=== PATIENT | female | born 1975 | race African-American/Black ===

== ENCOUNTER 2016-08-26 23:30 | Emergency (ER) | payer OTHER ==
[~2016-08-26] VITALS: Ht 170.2 cm; Wt 104.0 kg
[~2016-08-26 23:30] MED LIST: ALBU8I INH; AMLO10 PO; CYCL-36 PO; HYDR50TA5 PO; NAPR500 PO
[2016-08-26 23:32] VITALS: BP 143/85; PULSE 84; RESP 16; TEMP 98.3; O2SAT 99
[2016-08-26] MEDS ORDERED: AMOX500T PO (23:48)
[2016-08-26] MEDS ORDERED: PRED-503 PO (23:48)
[2016-08-27] MEDS ORDERED: AMOXICILLIN (TRIHYDRATE) 500 MG CAP PO ONE
--- NOTE | 2016-08-27 00:01 | PD ---
HPI Chief Complaint: ENT Complaint Time Seen by Provider: 23:58 Travel History International Travel<30 days: No Contact w/Intl Traveler<30days: No Traveled to known affect area: No History of Present Illness HPI 41-year-old black female resents emergency department with complaints of sore throat for the past 4 days. She states that in addition to the sore throat she has had runny nose, congestion and slight cough. She had an episode of vomiting earlier today with congestion. She denies any fever or chills. No ear pain, shortness of breath, wheezing, abdominal pain, dysuria or frequency. No diarrhea. 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 PFS Past Medical History Asthma: Yes Cancer: No Cardiovascular Problems: Yes (HTN) Diabetes: No Diminished Hearing: No Glaucoma: No Hepatitis: No Hypertension: Yes Reproductive: Yes (VULVAR DYSPLASIA) Respiratory: Yes (ASTHMA) Thyroid Disease: No Tetanus Vaccination: < 5 Years ?: Not LMP: 08/08/16 : 1 Para: 1 Dilation and Curettage (D&C): Yes Past Surgical History Abdominal Surgery: Yes (LAP JAMIN) Cholecystectomy: Yes Gynecologic Surgery: Yes (D&C) Pacemaker: No Other Surgery: Yes Social History Alcohol Use: No (VERY RARELY) Tobacco Use: No Substance Use: No Allergies-Medications (Allergen,Severity, Reaction): Coded Allergies: No Known Allergies (Verified , 08/26/16) Reported Meds & Prescriptions Reported Meds & Active Scripts Active Deltasone (Prednisone) 20 Mg Tab 20 Mg PO BID Amoxicillin 500 Mg Tab 1,000 Mg PO BID Naprosyn (Naproxen) 500 Mg Tab 500 Mg PO Q12HR PRN Flexeril (Cyclobenzaprine HCl) 10 Mg Tab 10 Mg PO Q8HR PRN Reported Ventolin Hfa (Albuterol Sulfate) 8 Gm Aero 1 Puff INH Q4 * SHAKE WELL BEFORE USE * Hydrochlorothiazide 50 Mg Tab 50 Mg PO DAILY Norvasc (Amlodipine Besylate) 10 Mg Tab 10 Mg PO HS Review of Systems Except as stated in HPI: all other systems reviewed are Neg Physical Exam Narrative GENERAL: Well-developed, well-nourished in no acute distress. Nontoxic appearing. HEAD: Normocephalic, atraumatic. EYES: Pupils equal round and reactive. Extraocular motions intact. No scleral icterus. No injection or drainage. ENT: TMs clear without erythema. The external auditory canals clear. Nose: clear . Posterior pharynx is pink and moist. No tonsillar edema or exudate. Uvula midline. Airway patent. NECK: Trachea midline.Supple, nontender, moves head freely. No central bony tenderness or spasm. CARDIOVASCULAR: Regular rate and rhythm without murmurs, gallops, or rubs. RESPIRATORY: Clear to auscultation. Breath sounds equal bilaterally. No wheezes , rales, or rhonchi. GASTROINTESTINAL: Abdomen soft, non-tender, nondistended. No hepato-splenomegaly , or palpable masses. No guarding. EXTREMITIES: No clubbing, cyanosis, or edema. No joint tenderness, effusion, or edema noted. BACK: Nontender without deformity or crepitance. No flank tenderness. Data Data Last Documented VS Vital Signs Date Time Temp Pulse Resp B/P Pulse Ox O2 Delivery O2 Flow Rate FiO2 08/26/16 23:32 98.3 84 16 143/85 99 Orders Amoxicillin (Trimox) (08/27/16 00:00) [facility] Medical Decision Making Medical Screen Exam Complete: Yes Emergency Medical Condition: Yes Medical Record Reviewed: Yes Differential Diagnosis MDM: High Differential diagnoses: Strep throat, viral pharyngitis, mono, peritonsillar abscess, retropharyngeal abscess, Raphael's angina Narrative Course This is acute pharyngitis. Patient's given amoxicillin 500 mg by mouth. Diagnosis Primary Impression: Acute pharyngitis Qualified Code: J02.9 - Acute pharyngitis, unspecified etiology Patient Instructions: General Instructions Additional Instructions: Rest. Force fluids. Saltwater gargles. Tylenol and Advil. Chloraseptic [place] Cepastat lozenge. Prednisone, Amoxicillin. Follow-up with a primary care doctor in one week. Return to the ER if any problems. Med/Other Pt SpecificInfo: Prescription(s) given Scripts Prednisone (Deltasone)20 Mg Tab20 Mg PO BID #6 TAB Prov:Annalise Souza MD 08/26/16 Amoxicillin 500 Mg Tab1,000 Mg PO BID #40 TAB Prov:Annalise Souza MD 08/26/16 Disposition: 01 DISCHARGE HOME Condition: Stable Álvaro Talamantes Aug 27, 2016 00:01
[2016-09-25] MEDS ORDERED: AMLO5TAB2 PO ×2 (11:43→12:09)
[2016-09-25] MEDS ORDERED: HYDR12.57 PO ×2 (11:43→12:09)
[2016-09-25] MEDS ORDERED: ALBUAER3 INH ×2 (11:43→12:09)
[2016-09-25] MEDS ORDERED: NORG1TAB29 PO ×2 (11:51→12:09)
[2016-10-17] MEDS ORDERED: FLUC150T PO (12:53)
[2016-10-23] MEDS ORDERED: TUBE5INJ2 I-DERMAL (12:44)
[2016-12-27] MEDS ORDERED: HYDR12.57 PO (11:59)
== END 2016-08-27 00:20 | disposition home or self-care (01) ==
LOC: NEPB 23:30
DX: J02.9 Acute pharyngitis, unspecified (principal); I10 Essential (primary) hypertension; J45.909 Unspecified asthma, uncomplicated
CPT/HCPCS: 99283

== ENCOUNTER 2017-06-15 06:45 | Emergency (ER) | payer OTHER ==
[~2017-06-15] VITALS: Ht 170.2 cm; Wt 105.0 kg
[~2017-06-15 06:45] MED LIST changes: -ALBU8I INH; +ALBUAER3 INH; -AMLO10 PO; +AMLO5TAB2 PO; -CYCL-36 PO; +HYDR12.57 PO; -HYDR50TA5 PO; -NAPR500 PO; +NORG1TAB29 PO
[2017-06-15 06:46] VITALS: BP 137/86; PULSE 73; RESP 15; TEMP 98.5; O2SAT 100
--- NOTE | 2017-06-15 07:12 | PD ---
HPI Chief Complaint: ENT Complaint Time Seen by Provider: 06:57 Travel History International Travel<30 days: No Contact w/Intl Traveler<30days: No Traveled to known affect area: No History of Present Illness HPI 41y female presents to the emergency department c/o left ear discomfort for 1 week. She thinks a bug flew into her ear about a month ago but never actually saw the bug and has not been able to take anything out of her ear. States that her left ear became more uncomfortable and aching and decided to come in here today. Admits to trying to dig into her ear with her fingernail however she's been unsuccessful. States that 3 days ago she developed bilateral watery eyes and clear runny nose after being exposed to a room at work. She denies any history of environmental allergies. She is not tried anything over-the- counter. Patient denies fever, chills, ear discharge, nausea, vomiting, diarrhea, chest pain, shortness of breath, cough. Patient history significant for high blood pressure which is controlled. PFSH Past Medical History Asthma: Yes Cancer: No Cardiovascular Problems: Yes (HTN) Diabetes: No Diminished Hearing: No Glaucoma: No Hepatitis: No Hypertension: Yes Reproductive: Yes (VULVAR DYSPLASIA) Respiratory: Yes (ASTHMA) Thyroid Disease: No ?: Not LMP: 06/15/17 : 1 Para: 1 Dilation and Curettage (D&C): Yes Past Surgical History Abdominal Surgery: Yes (LAP JAMIN) Cholecystectomy: Yes Gynecologic Surgery: Yes (D&C) Pacemaker: No Other Surgery: Yes Social History Alcohol Use: No (VERY RARELY) Tobacco Use: No Substance Use: No Allergies-Medications (Allergen,Severity, Reaction): Coded Allergies: No Known Allergies (Verified Adverse Reaction, Unknown, 06/15/17) Reported Meds & Prescriptions Reported Meds & Active Scripts Active Ciprodex Otic Drops (Ciprofloxacin-Dexamethasone Otic Drops) 0.3-0.1% Susp 4 Drop LEFT EAR BID 7 Days Proair Hfa 8.5 GM Inh (Albuterol Sulfate) 90 Mcg/Act Aer 2 Puff INH Q4-6H PRN 108 mcg/actuation Amlodipine (Amlodipine Besylate) 5 Mg Tab 5 Mg PO DAILY Low-Ogestrel (Norgestrel-Ethinyl Estradiol) 0.3-30 Mg-Mcg Tab 1 Tab PO DAILY Hydrochlorothiazide 12.5 Mg Cap 12.5 Mg PO DAILY Review of Systems Except as stated in HPI: all other systems reviewed are Neg Physical Exam Narrative GENERAL: Well-developed well-nourished in no apparent distress SKIN: Focused skin assessment warm/dry. HEAD: Atraumatic. Normocephalic. EYES: Pupils equal and round. No scleral icterus. Mild scleral injection without obvious discharge. ENT: No nasal bleeding. Clear rhinorrhea. Mucous membranes pink and moist. Bilateral ear canals appear erythematous without maceration or exudate. Postnasal drip EARS: Bilateral pinnae and external canals appear within normal limits. Bilateral tympanic membranes without erythema or perforation, air fluid level present behind TM membranes NECK: Trachea midline. No JVD. No lymphadenopathy CARDIOVASCULAR: Regular rate and rhythm. No murmur appreciated. RESPIRATORY: No accessory muscle use. Clear to auscultation. Breath sounds equal bilaterally. MUSCULOSKELETAL: No obvious deformities. No clubbing. No cyanosis. No edema. NEUROLOGICAL: Awake and alert. No obvious cranial nerve deficits. Motor grossly within normal limits. Normal speech. PSYCHIATRIC: Appropriate mood and affect; insight and judgment normal. Data Data Last Documented VS Vital Signs Date Time Temp Pulse Resp B/P (MAP) Pulse Ox O2 Delivery O2 Flow Rate FiO2 06/15/17 06:46 98.5 73 15 137/86 (103) 100 Room Air Orders Orders Ed Discharge Order (06/15/17 07:14) MDM Medical Decision Making Medical Screen Exam Complete: Yes Emergency Medical Condition: Yes Differential Diagnosis Environmental allergies versus otitis media versus otitis externa versus allergic rhinitis Narrative Course 41y female presents to the emergency department c/o left ear discomfort for 1 week. She thinks a bug flew into her ear about a month ago but never actually saw the bug and has not been able to take anything out of her ear. States that her left ear became more uncomfortable and aching and decided to come in here today. Admits to trying to dig into her ear with her fingernail however she's been unsuccessful. States that 3 days ago she developed bilateral watery eyes with mild stinging and clear runny nose after being exposed to a room at work. She denies any history of allergies. She is not tried anything over-the- counter. Patient denies fever, chills, ear discharge, nausea, vomiting, diarrhea, chest pain, shortness of breath, cough. Patient history significant for high blood pressure which is controlled. Physical exam demonstrates bilateral ear canals mildly erythematous without exudate. Left canal is slightly more erythematous with some obvious trauma consistent with patient's history. Left ear TM demonstrates air fluid level without bulging or perforation. Bilateral sclera with mild injection without exudate. Postnasal drip. Physical exam otherwise within normal limits. Vital signs stable Concern for developing left otitis externa secondary to digital trauma, Rx Ciprodex otic. Advised patient to take OTC antihistamines for allergic rhinitis and allergy symptoms, Tylenol or Motrin per package instructions Follow-up with primary care physician within 2 days and return if worsening or persistent symptoms. Diagnosis Primary Impression: Allergic rhinitis Qualified Codes: J30.9 - Allergic rhinitis, unspecified Additional Impression: Otitis externa Qualified Codes: H60.502 - Unspecified acute noninfective otitis externa, left ear Referrals: Primary Care Physician Patient Instructions: Allergic Rhinitis (ED), Ear Infection (ED), General Instructions Additional Instructions: Use [id number] U[place]ila, Zyrtec, Claritin, or Benadryl per package instructions daily for approximately 1 week. May use OTC Tyleno or motrin per package instructions for pain relief. Follow-up with her primary care physician within 2 days Medications as prescribed If your symptoms persist or worsen return to the emergency department Scripts Ciprofloxacin-Dexamethasone Otic Drops (Ciprodex Otic Drops) 0.3-0.1% Susp 4 DROP LEFT EAR BID for Infection for 7 Days, #1 BOTTLE 0 Refills Prov: Annie Sheridan MD 06/15/17 Disposition: 01 DISCHARGE HOME Condition: Stable Rozina Sultana Jun 15, 2017 07:12
[2017-06-15] MEDS ORDERED: CIPR0.3S LEFT EAR (07:13)
[2017-06-17] MEDS ORDERED: LISI-519 PO (09:32)
[2017-06-17] MEDS ORDERED: HYDR12.57 PO ×2 (09:32→10:08)
[2017-06-17] MEDS ORDERED: [UNRECOGNIZED DRUG - CODE] TOPICAL (10:05)
[2017-06-25] MEDS ORDERED: METR1TAB76 PO (16:14)
== END 2017-06-15 09:12 | disposition home or self-care (01) ==
LOC: NEPD 06:45
DX: J30.9 Allergic rhinitis, unspecified (principal); H60.92 Unspecified otitis externa, left ear; J45.909 Unspecified asthma, uncomplicated; I10 Essential (primary) hypertension; Z79.899 Other long term (current) drug therapy
CPT/HCPCS: 99283

== ENCOUNTER 2017-06-30 14:57 | Emergency (ER) | payer OTHER ==
[~2017-06-30] VITALS: Ht 170.2 cm; Wt 104.5 kg
[~2017-06-30 14:57] MED LIST changes: -AMLO5TAB2 PO; +CIPR0.3S LEFT EAR; +LISI-519 PO; +METR1TAB76 PO; +[UNRECOGNIZED DRUG - CODE] TOPICAL
[2017-06-30 15:00] VITALS: BP 146/83; PULSE 70; RESP 17; TEMP 98.8; O2SAT 95
[2017-06-30] MEDS ORDERED: CLAR5TAB9 PO (16:15)
[2017-06-30] MEDS ORDERED: TRAM50TA PO (16:15)
[2017-06-30] MEDS ORDERED: AUGM875T3 PO (16:15)
--- NOTE | 2017-06-30 16:15 | PD ---
HPI Chief Complaint: ENT Complaint Time Seen by Provider: 16:02 Travel History International Travel<30 days: No Contact w/Intl Traveler<30days: No Traveled to known affect area: No History of Present Illness HPI This is a 41-year-old female who presents to the emergency department with a week and a half of left ear pain, constant, severe, feeling like something is inside her ear with no associated rhinorrhea or sinus congestion and no fevers. She was seen a week and a half ago and prescribed Ciprodex but told she likely had allergic sinusitis. She's been using the Ciprodex. She followed up with her primary care physician and despite that she's not improving. She's been waking up in the middle the night because of her pain. PFSH Past Medical History Asthma: Yes Cancer: No Cardiovascular Problems: Yes Diabetes: No Diminished Hearing: No Glaucoma: No Hepatitis: No Hypertension: Yes Reproductive: Yes (VULVAR DYSPLASIA) Respiratory: Yes Thyroid Disease: No Tetanus Vaccination: < 5 Years ?: Not : 1 Para: 1 Dilation and Curettage (D&C): Yes Past Surgical History Abdominal Surgery: Yes (LAP JAMIN) Cholecystectomy: Yes Gynecologic Surgery: Yes (D&C) Pacemaker: No Other Surgery: Yes Social History Alcohol Use: No (VERY RARELY) Tobacco Use: No Substance Use: No Allergies-Medications (Allergen,Severity, Reaction): Coded Allergies: No Known Allergies (Verified Adverse Reaction, Unknown, 06/30/17) Reported Meds & Prescriptions Reported Meds & Active Scripts Active Metronidazole 500 Mg Tab 500 Mg PO BID Hydrochlorothiazide 12.5 Mg Cap 12.5 Mg PO BID Podofilox Topical (Podofilox) 0.5% Soln 1 Applic TOPICAL BID 3 Days Apply BID for 3 days. Stop for 4 days. Repeat if needed for max 4 cycles. DO NOT use inside vagina. Lisinopril 5 Mg Tab 5 Mg PO DAILY Ciprodex Otic Drops (Ciprofloxacin-Dexamethasone Otic Drops) 0.3-0.1% Susp 4 Drop LEFT EAR BID 7 Days Proair Hfa 8.5 GM Inh (Albuterol Sulfate) 90 Mcg/Act Aer 2 Puff INH Q4-6H PRN 108 mcg/actuation Low-Ogestrel (Norgestrel-Ethinyl Estradiol) 0.3-30 Mg-Mcg Tab 1 Tab PO DAILY Review of Systems General / Constitutional: No: Fever, Chills Respiratory: No: Cough Physical Exam Narrative GENERAL: Well-appearing, no acute distress, nontoxic SKIN: Warm and dry. HEAD: Atraumatic. Normocephalic. ENT: Fluid behind the left tympanic membrane, no erythema, no edema of the ear canal, no foreign body in the ear canal. MUSCULOSKELETAL: No obvious deformities. No clubbing. No cyanosis. No edema. NEUROLOGICAL: Awake and alert. No obvious cranial nerve deficits. Motor grossly within normal limits. Normal speech. PSYCHIATRIC: Appropriate mood and affect; insight and judgment normal. Data Data Last Documented VS Vital Signs Date Time Temp Pulse Resp B/P (MAP) Pulse Ox O2 Delivery O2 Flow Rate FiO2 06/30/17 15:00 98.8 70 17 146/83 (104) 95 Room Air MDM Medical Decision Making Medical Screen Exam Complete: Yes Emergency Medical Condition: Yes Differential Diagnosis Sinus congestion, otitis media, foreign body, otitis externa Narrative Course This is a 41-year-old female who presents to the emergency department with pain in her left ear that is been going on for 1 week. On exam she has fluid behind the eardrum but no erythema or dullness to suggest otitis media. I suspect she has sinus congestion or sinusitis causing her symptoms. Patient will be discharged on Augmentin, Sudafed, tramadol for pain and will be referred to ENT. Diagnosis Primary Impression: Fluid level behind tympanic membrane of left ear Patient Instructions: General Instructions Additional Instructions: If you develop fever, chills, severe pain or severe headache return to the emergency room. Follow-up with an ENT as soon as possible. Med/Other Pt SpecificInfo: Prescription(s) given Scripts Tramadol (Tramadol) 50 Mg Tab 50 MG PO Q6H Y for PAIN, #10 TAB 0 Refills Prov: Mirtha Ayala MD 06/30/17 Loratadine-Pseudoephedrine 12 HR (Claritin-D 12 HR) 5-120 Mg Tab 1 TAB PO BID for Allergy Management, #20 TAB 0 Refills Prov: Mirtha Ayala MD 06/30/17 Amoxicillin-Clavulanate (Augmentin) 875-125 Mg Tab 1 TAB PO BID for Infection, #20 TAB 0 Refills Prov: Mirtha Ayala MD 06/30/17 Disposition: 01 DISCHARGE HOME Condition: Stable Mirtha Ayala MD Jun 30, 2017 16:15
== END 2017-06-30 16:34 | disposition home or self-care (01) ==
LOC: NEPK 14:57
DX: H92.02 Otalgia, left ear (principal); J45.909 Unspecified asthma, uncomplicated; I10 Essential (primary) hypertension; Z79.899 Other long term (current) drug therapy
CPT/HCPCS: 99284

== ENCOUNTER 2017-12-15 06:29 | Emergency (ER) | payer OTHER ==
[2017-12-15 07:29] LABS: BACTERIA, URINE OCC /hpf; BILIRUBIN, URINE NEG (NEG); BLOOD, URINE SMALL (NEG); COMMENT (UR) CULTURE INDICATED; CULTURE IF INDICATED CULTURE INDICATED; GLUCOSE,URINE NEG (NEG); HYALINE CAST, URINE 5 /lpf (RARE); KETONE, URINE NEG (NEG); MUCUS URINE FEW /lpf (OCC); NITRITE,URINE NEG (NEG); PH, URINE 5.5 (5.0-8.5); SQUAMOUS EPITHELIAL CELL URINE 2 /hpf (0-5); URINE COLOR YELLOW (YELLW/STRAW); URINE LEUKOCYTE ESTERASE MOD (NEG)
== END 2017-12-15 08:00 | disposition home or self-care (01) ==
LOC: NEPE 06:29
DX: N30.01 Acute cystitis with hematuria (principal); B96.1 Klebsiella pneumoniae [K. pneumoniae] as the cause of diseases classified elsewhere; I10 Essential (primary) hypertension; J45.909 Unspecified asthma, uncomplicated; Z79.899 Other long term (current) drug therapy
CPT/HCPCS: 81001; 87077; 87086; 87186; 99283